=== PATIENT | male | born 2000 | race Caucasian/White ===

== ENCOUNTER 2024-01-08 19:19 | Outpatient (REF) | payer BC, SELFPAY ==
[2024-01-10 19:50] LABS: Campylobacter PCR Negative (Negative); Salmonella PCR Negative (Negative); Shiga Toxin PCR Negative (Negative); Shigella/Enteroinvasive Ecoli Negative (Negative)
== END 2024-01-08 19:20 | disposition home or self-care (01) ==
LOC: LBN 19:19
PROVIDERS: Visit Provider Physician Assistant
DX: R19.7 Diarrhea, unspecified (principal)
CPT/HCPCS: 87329; 87505; 87177